=== PATIENT | female | born 1995 | race Caucasian/White ===

== ENCOUNTER 2019-12-24 05:42 | Day surgery (SDC) | payer BC ==
[~2019-12-24] VITALS: Ht 149.9 cm; Wt 81.6 kg
[2019-12-24] MEDS ORDERED: LACTATED RINGERS 1,000 ML IV SCH (06:20)
[2019-12-24 06:30] LABS: BASOPHILS % 0.5 % (0.0-2.0); EOSINOPHILS % 0.9 % (0.0-5.0); HEMATOCRIT. 40.1 % (36.0-48.0); HEMOGLOBIN. 13.7 g/dL (12.0-16.0); LYMPHOCYTES % 27.9 % (20.0-50.0); MEAN CORPUSCULAR HEMOGLOBIN 30.3 pg (28.0-32.0); MEAN CORPUSCULAR VOLUME 88.8 fL (81.0-99.0); MEAN PLATELET VOLUME 8.4 fl (7.4-10.4); MONOCYTES % 5.3 % (2.0-8.0); NEUTROPHILS % 65.4 % (40.0-76.0); PLATELET 242 x1000/uL (130-400); RED BLOOD CELL COUNT 4.51 mill/uL (4.2-5.4); RED CELL DISTRIBUTION WIDTH 13.2 % (11.6-14.6)
[2019-12-24 06:37] LABS: CLARITY URINE CLOUDY (CLEAR); COLOR URINE YELLOW (YELLOW); KETONES URINE NEGATIVE (NEGATIVE); LEUKOCYTE ESTERASE URINE 2+ (NEGATIVE); NITRITE URINE NEGATIVE (NEGATIVE); OCCULT BLOOD URINE 3+ (NEGATIVE); PH URINE 5.5 (4.5-8.0); PROTEIN URINE TRACE (NEGATIVE); SPECIFIC GRAVITY URINE 1.022 (1.005-1.030); UROBILINOGEN URINE 0.2 E.U./dL (0.2-1.0)
[2019-12-24 06:40] LABS: UCG SCREEN NEGATIVE
[2019-12-24] MEDS ORDERED: INDOCYANINE GREEN 25 MG VIAL IV ONE (06:48)
[2019-12-24] MEDS ORDERED: SKIN ADHESIVE 0.7 GM EA TOP ONE (06:49)
[2019-12-24] MEDS ORDERED: BUPIVACAINE HCL 0.5% (5MG/ML) 50ML ONE (06:49)
[2019-12-24] MEDS ORDERED: PROPOFOL 200MG/20ML VIAL IV ONE (07:30)
[2019-12-24] MEDS ORDERED: LIDOCAINE HCL/PF 1% 10 MG/ML 5ML VIAL ONE (07:30)
[2019-12-24] MEDS ORDERED: ROCURONIUM BROMIDE 10MG/ML VIAL 5ML IV ONE (07:30)
[2019-12-24] MEDS ORDERED: SUCCINYLCHOLINE CHLORIDE 200MG/10ML IV ONE (07:30)
[2019-12-24] MEDS ORDERED: FENTANYL CITRATE/PF 50MCG/ML 2ML VIAL ONE (07:32)
[2019-12-24] MEDS ORDERED: MIDAZOLAM HCL 2 MG/2 ML VIAL ONE (07:32)
[2019-12-24] MEDS ORDERED: CEFAZOLIN SODIUM 1000MG/VIAL ONE (07:54)
[2019-12-24] MEDS ORDERED: SODIUM CHLORIDE 0.9% 10ML VIAL ONE ×2 (07:54→08:18)
[2019-12-24] MEDS ORDERED: DEXAMETHASONE 4MG/ML 1ML VIAL ONE (08:10)
[2019-12-24] MEDS ORDERED: ONDANSETRON HCL 4MG/2ML INJ ONE (08:10)
[2019-12-24] MEDS ORDERED: EPHEDRINE SULFATE 50MG/ML VIAL ONE (08:18)
[2019-12-24] MEDS ORDERED: PHENYLEPHRINE HCL 10 MG/ML 1ML (IV VIAL) IV ONE (08:25)
[2019-12-24] MEDS ORDERED: NEOSTIGMINE METHYLSULFATE 1MG/ML 10 ML VIAL ONE (08:43)
[2019-12-24] MEDS ORDERED: GLYCOPYRROLATE 0.2 MG/ML 2ML VIAL ONE (08:44)
[2019-12-24] MEDS ORDERED: KETOROLAC 30MG/ML VIAL ONE (08:56)
[2019-12-24] MEDS: HYDROMORPHONE HCL/PF 2MG/ML CPJ IV PRN ×3 (09:24→09:35)
[2019-12-24 09:35] VITALS: BP 138/71
== END 2019-12-24 10:50 | disposition home or self-care (01) ==
LOC: OR 05:42
PROVIDERS: ATTEND Surgery
DX: K80.10 Calculus of gallbladder with chronic cholecystitis without obstruction (principal); E66.9 Obesity, unspecified; Z98.890 Other specified postprocedural states; Z68.36 Body mass index [BMI] 36.0-36.9, adult
CPT/HCPCS: 36415; 47562; 80051; 81003; 81025; 85025; 88304; J0330; J0690; J1100; J1170; J1885; J2250; J2370; J2405; J2704; J2710; J3010; J3490; Q9957; S2900